=== PATIENT | female | born 1940 | race Caucasian/White ===

== ENCOUNTER → 2021-05-05 | Outpatient (CLI) | payer MEDICARE ==
--- NOTE | 2021-05-06 10:41 | CARD ---
MR#: [id number] Date of Study: 05/05/2021 Ordering Physician: GLORY MEHTA, Referring Physician: GLORY MEHTA, Tech: Sharmin Oscar, [facility] APPROVED REPORT EXAM: Two-dimensional and M-mode echocardiogram with Doppler and color Doppler. Other Information Quality : AverageHR: 71bpm INDICATION Aortic Valve Disease Surgery/Intervention Status/Post Aortic Valve Replacement: Mechanical Date: RISK FACTORS Hypertension Hyperlipidemia Asthma 2D DIMENSIONS Left Atrium(2D)3.6 (1.6-4.0cm)IVSd1.2 (0.7-1.1cm) Aortic Root(2D)1.8 (2.0-3.7cm)LVDd4.4 (3.9-5.9cm) LVOT Diameter1.7 (1.8-2.4cm)PWd1.0 (0.7-1.1cm) LVDs3.1 (2.5-4.0cm)FS (%) 28.0 % SV46.7 ml Aortic Valve AoV Peak Andres.199.9cm/sAoV VTI43.3cm AO Peak GR.16.0mmHgLVOT Peak Andres.101.1cm/s LVOT VTI 26.26cmAO Mean GR.9mmHg CHRISTI (VMAX)1.74ux9IUY (VTI)1.30cm2 Mitral Valve MV E Groynkxc967.4cm/sMV E Peak Gr.7mmHg MV DECEL [id number] A Dcvibsvd554.4cm/s MV E Mean Gr.3mmHgE/A Ratio1.0 Pulmonary Valve PV Peak Pkvlfmeq85.2cm/sPV Peak Grad.3mmHg Tricuspid Valve TR P. Itsdokhm601ls/sRAP [id number] TR Peak Gr.19jqGuMYXS24yjNk LEFT VENTRICLE The left ventricle is normal size. There is borderline to mild concentric left ventricular hypertroph y. The left ventricular systolic function is normal and the ejection fraction is within normal range. The Ejection Fraction is 55-60%. There is normal LV segmental wall motion. Transmitral Doppler flow pattern is Grade II-pseudonormal filling dynamics. RIGHT VENTRICLE The right ventricle is normal size. There is normal right ventricular wall thickness. The right ventr icular systolic function is normal. ATRIA The left atrium size is normal. The right atrium size is normal. The interatrial septum is intact wit h no evidence for an atrial septal defect or patent foramen ovale as noted on 2-D or Doppler imaging. AORTIC VALVE Doppler and Color Flow revealed trace aortic regurgitation. There is no significant aortic valvular s tenosis. Calculated aortic valve area is 1.6 cm2 with maximum pressure gradient of 16 mmHg and mean p ressure gradient of 8 mmHg. 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 MITRAL VALVE Mitral annular calcification is mild. There is no evidence of mitral valve prolapse. There is no mitr al valve stenosis. Doppler and Color-flow revealed trace mitral regurgitation. TRICUSPID VALVE The tricuspid valve is normal in structure and function. Doppler and Color Flow revealed trace tricus pid regurgitation with an estimated PAP of 33 mmHg. There is no tricuspid valve stenosis. PULMONIC VALVE The pulmonic valve is not well visualized. Doppler and Color Flow revealed trace pulmonic valvular re gurgitation. GREAT VESSELS The aortic root is normal in size. The IVC is normal in size and collapses >50% with inspiration. PERICARDIAL EFFUSION There is no evidence of significant pericardial effusion. Critical Notification Critical Value: No <Conclusion> The left ventricle is normal size. The left ventricular systolic function is normal and the ejection fraction is within normal range. The Ejection Fraction is 55-60%. There is borderline to mild concentric left ventricular hypertrophy. 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 Doppler and Color Flow revealed trace aortic regurgitation. There is no significant aortic valvular stenosis. Calculated aortic valve area is 1.6 cm2 with maximum pressure gradient of 16 mmHg and mean pressure g radient of 8 mmHg. Doppler and Color-flow revealed trace mitral regurgitation. Doppler and Color Flow revealed trace tricuspid regurgitation with an estimated PAP of 33 mmHg. Signed by : Mitch Brooke MD Electronically Approved : 05/06/2021 10:40:55
== END ==
LOC: ECHO 09:47
PROVIDERS: ATTEND Internal Medicine Cardiovascular Disease
DX: I34.0 Nonrheumatic mitral (valve) insufficiency (principal); I51.7 Cardiomegaly; I35.0 Nonrheumatic aortic (valve) stenosis
CPT/HCPCS: 93306